=== PATIENT | male | born 1985 | race Caucasian/White ===

== ENCOUNTER → 2020-12-29 | Outpatient (CLI) | payer OTHER ==
[~2020-12-29] MED LIST: CEFTIN500 MG PO
== END ==
LOC: WCC 09:11
DX: T23.302A Burn of third degree of left hand, unspecified site, initial encounter (principal); G40.419 Other generalized epilepsy and epileptic syndromes, intractable, without status epilepticus; F31.9 Bipolar disorder, unspecified; F79 Unspecified intellectual disabilities; Z72.0 Tobacco use
CPT/HCPCS: 87070; 87077; 87186; 87205

== ENCOUNTER → 2021-01-05 | Outpatient (CLI) | payer OTHER | LOC: WCC 10:00 | DX: T23.301D Burn of third degree of right hand, unspecified site, subsequent encounter (principal); G40.419 Other generalized epilepsy and epileptic syndromes, intractable, without status epilepticus; G40.89 Other seizures; F31.9 Bipolar disorder, unspecified; Z72.0 Tobacco use ==

== ENCOUNTER → 2021-01-12 | Outpatient (CLI) | payer OTHER | LOC: WCC 09:00 | DX: T23.362D Burn of third degree of back of left hand, subsequent encounter (principal); G40.419 Other generalized epilepsy and epileptic syndromes, intractable, without status epilepticus; G40.89 Other seizures; F79 Unspecified intellectual disabilities; F31.9 Bipolar disorder, unspecified; F17.200 Nicotine dependence, unspecified, uncomplicated; Z79.2 Long term (current) use of antibiotics; Z79.899 Other long term (current) drug therapy; X08.8XXD Exposure to other specified smoke, fire and flames, subsequent encounter ==